=== PATIENT | male | born 1985 | race African-American/Black ===

== ENCOUNTER 2018-07-08 20:45 | Emergency (ER) | payer OTHER, MEDICAID ==
[~2018-07-08] VITALS: Ht 182.9 cm; Wt 83.0 kg
[2018-07-08 23:19] LABS: BASOPHILS % 0.5 % (0.0-2.0); EOSINOPHILS % 0.1 % (0.0-5.0); HEMATOCRIT. 41.6 % (42.0-52.0); HEMOGLOBIN. 13.2 g/dL (14.0-18.0); LYMPHOCYTES % 19.2 % (20.0-50.0); MEAN CORPUSCULAR HEMOGLOBIN 26.7 pg (28.0-32.0); MEAN CORPUSCULAR VOLUME 84.2 fL (80.0-94.0); MEAN PLATELET VOLUME 7.8 fl (7.4-10.4); MONOCYTES % 4.1 % (2.0-8.0); NEUTROPHILS % 76.1 % (40.0-76.0); PLATELET 166 x1000/uL (130-400); RED BLOOD CELL COUNT 4.94 mill/uL (4.7-6.1); RED CELL DISTRIBUTION WIDTH 15.9 % (11.6-14.6)
[2018-07-08 23:20] LABS: CHLORIDE 105 mEq/L (98-107)
[2018-07-09 01:39] VITALS: BP 121/65
== END 2018-07-09 01:41 | disposition home or self-care (01) ==
LOC: ER 22:11
DX: F41.9 Anxiety disorder, unspecified (principal); R42 Dizziness and giddiness; R06.02 Shortness of breath; E11.9 Type 2 diabetes mellitus without complications; I51.9 Heart disease, unspecified; F12.10 Cannabis abuse, uncomplicated
CPT/HCPCS: 36415; 70450; 71045; 80053; 83880; 84484; 85025; 93005; 99285

== ENCOUNTER 2019-04-24 11:24 | Emergency (ER) | payer MEDICARE, MEDICAID ==
[~2019-04-24] VITALS: Ht 175.3 cm; Wt 81.0 kg
[2019-04-24] MEDS ORDERED: SODIUM CHLORIDE 0.9% 1,000 ML IV ONE (12:12)
[2019-04-24] MEDS ORDERED: KETOROLAC 30MG/ML VIAL IV STA (12:12)
[2019-04-24 12:47] LABS: BASOPHILS % 0.8 % (0.0-2.0); EOSINOPHILS % 1.6 % (0.0-5.0); HEMOGLOBIN. 13.5 g/dL (14.0-18.0); LYMPHOCYTES % 34.9 % (20.0-50.0); MEAN CORPUSCULAR VOLUME 83.8 fL (80.0-94.0); MEAN PLATELET VOLUME 7.9 fl (7.4-10.4); MONOCYTES % 8.4 % (2.0-8.0); NEUTROPHILS % 54.3 % (40.0-76.0); PLATELET 181 x1000/uL (130-400); RED BLOOD CELL COUNT 5.01 mill/uL (4.7-6.1); RED CELL DISTRIBUTION WIDTH 15.7 % (11.6-14.6)
[2019-04-24 12:53] LABS: CHLORIDE 109 mEq/L (98-107)
[2019-04-24 12:57] LABS: INR 1.1; PARTIAL THROMBOPLASTIN TIME 31.1 sec (23.4-31.0); PROTHROMBIN TIME 11.4 sec (9.6-11.0)
[2019-04-24 12:58] LABS: *AMPHETAMINES SCREEN URINE NEGATIVE (NEGATIVE); *BARBITURATES SCREEN URINE NEGATIVE (NEGATIVE); *BENZODIAZEPINES SCREEN URINE NEGATIVE (NEGATIVE)
[2019-04-24 12:59] LABS: *COCAINE SCREEN URINE NEGATIVE (NEGATIVE); CANNABINOID URINE SCREEN PRESUMTIVE POSITIVE (NEGATIVE); METHADONE URINE SCREEN NEGATIVE (NEGATIVE); OPIATES URINE SCREEN NEGATIVE (NEGATIVE); PHENCYCLIDINE URINE SCREEN NEGATIVE (NEGATIVE)
[2019-04-24] MEDS ORDERED: TRAMADOL 50MG TABLET PO ONE (13:30)
[2019-04-24 14:40] VITALS: BP 118/70
== END 2019-04-24 14:47 | disposition home or self-care (01) ==
LOC: ER 13:37
DX: R51 Headache (principal); E11.9 Type 2 diabetes mellitus without complications; I10 Essential (primary) hypertension; F17.210 Nicotine dependence, cigarettes, uncomplicated
CPT/HCPCS: 36415; 70450; 71045; 80053; 80305; 83880; 84484; 85025; 85610; 85730; 93005; 96361; 96374; 99284; J1885; J7030

== ENCOUNTER 2021-10-22 14:57 | Emergency (ER) | payer MEDICAID, MEDICARE ==
[~2021-10-22] VITALS: Ht 185.4 cm; Wt 91.0 kg
[2021-10-22 15:22] VITALS: BP 134/75
[2021-10-22] MEDS ORDERED: IBUPROFEN 800MG TABLET PO ONE (15:30)
== END 2021-10-22 22:42 | disposition left against medical advice (07) ==
LOC: ER 14:57
DX: Z53.21 Procedure and treatment not carried out due to patient leaving prior to being seen by health care provider (principal)